=== PATIENT | female | born 1955 | race Caucasian/White ===

== ENCOUNTER 2022-03-03 07:44 | Emergency (ER) | payer OTHER, MEDICAID ==
[~2022-03-03] VITALS: Ht 157.5 cm; Wt 87.0 kg
[2022-03-03] MEDS ORDERED: MAGNESIUM/ALUMINUM HYDROXIDE/SIMETHICONE 30ML UDC PO STA (08:19)
[2022-03-03] MEDS ORDERED: FAMOTIDINE 20MG/2ML VIAL IV STA (08:19)
[2022-03-03] MEDS ORDERED: ONDANSETRON HCL 4MG/2ML INJ IV STA (08:19)
[2022-03-03] MEDS ORDERED: MORPHINE SULFATE 4 MG/ML CPJ (NOT FOR IM USE) IV STA (08:19)
[2022-03-03] MEDS ORDERED: SODIUM CHLORIDE 0.9% 1,000 ML IV ONE (08:30)
[2022-03-03 08:44] LABS: HEMATOCRIT. 38.7 % (36.0-48.0); HEMOGLOBIN. 13.3 g/dL (12.0-16.0); MEAN CORPUSCULAR HEMOGLOBIN 29.8 pg (28.0-32.0); MEAN CORPUSCULAR VOLUME 86.4 fL (81.0-99.0); MEAN PLATELET VOLUME 10.3 fl (7.4-10.4); PLATELET 330 x1000/uL (130-400); RED BLOOD CELL COUNT 4.47 mill/uL (4.2-5.4)
[2022-03-03 09:09] LABS: PLATELET ESTIMATE NORMAL
[2022-03-03] MEDS ORDERED: AMOXICILLIN/POTASSIUM CLAVULANATE 875/125MG TAB PO ONE (09:30)
[2022-03-03 09:38] LABS: CHLORIDE 107 mEq/L (98-107)
[2022-03-03 10:43] VITALS: BP 124/57
[2022-03-03 10:49] LABS: CLARITY URINE CLEAR (CLEAR); COLOR URINE DARK YELLOW (YELLOW); KETONES URINE 2+ (NEGATIVE); LEUKOCYTE ESTERASE URINE NEGATIVE (NEGATIVE); NITRITE URINE NEGATIVE (NEGATIVE); OCCULT BLOOD URINE 2+ (NEGATIVE); PROTEIN URINE 4+ (NEGATIVE); SPECIFIC GRAVITY URINE 1.032 (1.005-1.030); UROBILINOGEN URINE 0.2 E.U./dL (0.2-1.0)
[2022-03-03] MEDS ORDERED: ONDA4TAB5 MT (11:27)
[2022-03-03] MEDS ORDERED: TOPUD MT (11:27)
[2022-03-03] MEDS ORDERED: AMOX-424 MT (11:27)
== END 2022-03-03 12:20 | disposition home or self-care (01) ==
LOC: ER 08:21
DX: K57.92 Diverticulitis of intestine, part unspecified, without perforation or abscess without bleeding (principal); K21.9 Gastro-esophageal reflux disease without esophagitis; E11.9 Type 2 diabetes mellitus without complications; I10 Essential (primary) hypertension; Z90.49 Acquired absence of other specified parts of digestive tract
CPT/HCPCS: 36415; 71045; 74176; 80053; 81003; 83605; 83690; 84484; 85025; 93005; 96361; 96374; 96375; 99285; J2270; J2405; J3490; J7030

== ENCOUNTER 2024-03-02 10:10 | Emergency (ER) | payer OTHER ==
[~2024-03-02] VITALS: Ht 160 cm; Wt 72.0 kg
[~2024-03-02 10:10] MED LIST: AMOX-424 MT; ONDA4TAB5 MT; TOPUD MT
[2024-03-02 10:20] VITALS: TEMP 98.3; O2SAT 98
[2024-03-02 10:49] LABS: CARBON DIOXIDE 23 mEq/L (21-32); CHLORIDE 109 mEq/L (98-107); SODIUM 140 mEq/L (136-145)
[2024-03-02 10:53] LABS: BASOPHILS % 0.8 % (0.0-2.0); EOSINOPHILS % 0.8 % (0.0-5.0); HEMATOCRIT. 33.4 % (36.0-48.0); HEMOGLOBIN. 11.6 g/dL (12.0-16.0); LYMPHOCYTES % 15.8 % (20.0-50.0); MEAN CORPUSCULAR HEMOGLOBIN 29.9 pg (28.0-32.0); MEAN CORPUSCULAR HGB CONC 34.7 g/dL (31.0-37.0); MEAN CORPUSCULAR VOLUME 86.1 fL (81.0-99.0); MEAN PLATELET VOLUME 9.1 fl (7.4-10.4); MONOCYTES % 4.6 % (2.0-8.0); PLATELET 315 x1000/uL (130-400); RED BLOOD CELL COUNT 3.89 mill/uL (4.2-5.4); RED CELL DISTRIBUTION WIDTH 13.1 % (11.6-14.6); WHITE BLOOD COUNT 10.4 x1000/uL (4.5-11.0)
[2024-03-02 10:55] LABS: CREATININE 0.6 mg/dL (0.6-1.0); GLUCOSE 150 mg/dL (70-105); UREA NITROGEN BLOOD 12 mg/dL (9-23)
[2024-03-02 10:57] LABS: ALANINE AMINOTRANSFERASE 12 IU/L (10-49); ALBUMIN 3.8 g/dL (3.2-4.8); ASPARTATE AMINOTRANSFERASE 23 IU/L (<34); BILIRUBIN DIRECT 0.2 mg/dL (<=3.0); BILIRUBIN TOTAL 0.7 mg/dL (0.1-1.0); PROTEIN TOTAL 6.6 g/dL (6.0-8.3)
[2024-03-02 11:06] LABS: TROPONIN I HIGH SENSITIVITY < 4 ng/L (3.0-34)
[2024-03-02 11:25] LABS: CALCIUM 9.5 mg/dL (8.7-10.4)
[2024-03-02 14:14] VITALS: BP 159/64; PULSE 74; RESP 14
[2024-03-02 15:17] LABS: CLARITY URINE CLEAR (CLEAR); COLOR URINE YELLOW (YELLOW); GLUCOSE URINE TRACE (NEGATIVE); KETONES URINE NEGATIVE (NEGATIVE); LEUKOCYTE ESTERASE URINE NEGATIVE (NEGATIVE); NITRITE URINE NEGATIVE (NEGATIVE); OCCULT BLOOD URINE 1+ (NEGATIVE); PH URINE 5.5 (4.5-8.0); PROTEIN URINE 4+ (NEGATIVE); UROBILINOGEN URINE 0.2 E.U./dL (0.2-1.0)
[2024-03-02 16:03] LABS: BACTERIA URINE 1+; SQUAMOUS EPITHELIAL CELL URINE 1+ /lpf (RARE/1+); WBC URINE 0-2 /hpf (0-2)
== END 2024-03-02 17:59 | disposition home or self-care (01) ==
LOC: ER 10:10
DX: R10.30 Lower abdominal pain, unspecified (principal); E11.9 Type 2 diabetes mellitus without complications; I10 Essential (primary) hypertension; Z90.49 Acquired absence of other specified parts of digestive tract
CPT/HCPCS: 36415; 71045; 80048; 80076; 81003; 83880; 84484; 85025; 93005; 99285